=== PATIENT | female | born 1955 | race Caucasian/White ===

== ENCOUNTER 2018-01-08 20:57 | Emergency (ER) | payer MEDICAID ==
[2018-01-09 01:43] VITALS: BP 157/86
== END 2018-01-09 01:43 | disposition home or self-care (01) ==
LOC: ED 20:57
DX: S09.90XA Unspecified injury of head, initial encounter (principal); S16.1XXA Strain of muscle, fascia and tendon at neck level, initial encounter; I10 Essential (primary) hypertension; G40.909 Epilepsy, unspecified, not intractable, without status epilepticus; W22.8XXA Striking against or struck by other objects, initial encounter; Y93.89 Activity, other specified; Y92.89 Other specified places as the place of occurrence of the external cause; Y99.8 Other external cause status

== ENCOUNTER 2020-02-29 17:30 | Inpatient (IN) | payer SELFPAY ==
[~2020-02-29] VITALS: Ht 149.9 cm; Wt 61.7 kg
[2020-02-29 17:31] VITALS: Ht 149.9 cm; Wt 61.7 kg
[2020-02-29 18:15] LABS: microscopic required? NO
[2020-02-29 18:24] LABS: BASOPHIL % 1.1 % (0-2); PLATELET COUNT 378 x10^3mcL (130-400)
[2020-02-29 18:27] LABS: UA SPECIFIC GRAVITY 1.025 (1.005-1.035); urine erythrocyte NEGATIVE (NEGATIVE)
[2020-02-29 18:52] LABS: CALCIUM 9.4 mg/dL (8.5-10.1); CARBON DIOXIDE 21.3 mmol/L (21-32); CHLORIDE SERUM 98 mmol/L (98-107); CREATININE SERUM 1.4 mg/dL (0.6-1.0); GFR1 40 mL/min; GLUCOSE SERUM 125 mg/dL (74-106); POTASSIUM SERUM 3.7 mmol/L (3.5-5.1); SODIUM SERUM 136 mmol/L (136-145)
[2020-02-29 18:58] LABS: ALBUMIN 4.2 g/dL (3.4-5.0); ALKALINE PHOSPHATASE 157 U/L (46-116); ALT/SGPT 22 U/L (14-59); AST/SGOT 17 U/L (15-37); BILIRUBIN TOTAL 0.2 mg/dL (0.20-1.00); C REACTIVE PROTEIN 1.6 mg/dL (<=0.9)
[2020-02-29 19:01] LABS: TOTAL PROTEIN, SERUM 8.8 g/dL (6.4-8.2)
[2020-02-29 19:04] LABS: ERYTHROCYTE SED RATE 61 mm/hr (0-30)
[2020-02-29 19:20] LABS: FREE T4 1.07 ng/dL (0.76-1.46); FREE THYROXINE INDEX 2.5 ug/dL (1.4-4.5); T4(THYROXINE) 7.8 ug/dL (4.7-13.3)
[2020-02-29 19:26] LABS: CK-MB 0.6 ng/mL (0-3.6)
[2020-02-29 23:58] LABS: CHOLESTEROL/HDL RATIO 3.6
[2020-03-01 01:00] VITALS: BP 157/86
[2020-03-01] MEDS ORDERED: FORTAMET500 M1 PO (03:03)
[2020-03-01] MEDS ORDERED: LIPITOR20 MG PO (04:18)
[2020-03-01] MEDS ORDERED: ENALAPRIL20 M1 PO (04:18)
[2020-03-01] MEDS ORDERED: MICROZIDE12.5 MG PO (04:18)
[2020-03-01 05:09] VITALS: BP 147/66
[2020-03-01 07:31] LABS: BASOPHIL % 0.6 % (0-2); PLATELET COUNT 286 x10^3mcL (130-400); RED CELL DISTRIBUTION WIDTH 14.1 % (11.5-14.5)
[2020-03-01 07:46] LABS: CARBON DIOXIDE 23.1 mmol/L (21-32); CREATININE SERUM 1.2 mg/dL (0.6-1.0); POTASSIUM SERUM 3.9 mmol/L (3.5-5.1)
[2020-03-01 08:58] VITALS: BP 145/70
[2020-03-01 10:33] LABS: AMPHETAMINE QUAL UR NONE DETECTED (See below)
[2020-03-01 12:51] VITALS: BP 133/70
[2020-03-01 17:14] VITALS: BP 134/74
[2020-03-01 20:14] VITALS: BP 150/77
[2020-03-02 05:40] VITALS: BP 106/76
[2020-03-02 07:04] LABS: CALCIUM 8.3 mg/dL (8.5-10.1); CARBON DIOXIDE 25.4 mmol/L (21-32); CHLORIDE SERUM 106 mmol/L (98-107); CREATININE SERUM 0.8 mg/dL (0.6-1.0); GFR1 > 60 mL/min; GLUCOSE SERUM 113 mg/dL (74-106); MAGNESIUM 1.8 mg/dL (1.8-2.4); PHOSPHOROUS 3.5 mg/dL (2.5-4.9); POTASSIUM SERUM 3.7 mmol/L (3.5-5.1); SODIUM SERUM 139 mmol/L (136-145)
[2020-03-02 07:05] LABS: BASOPHIL % 0.6 % (0-2); PLATELET COUNT 247 x10^3mcL (130-400); RED CELL DISTRIBUTION WIDTH 14.3 % (11.5-14.5)
[2020-03-02 08:20] VITALS: BP 140/76
[2020-03-02 13:27] VITALS: BP 138/78
[2020-03-02 14:33] LABS: T3 TOTAL 0.63 ng/mL
[2020-03-02 17:36] VITALS: BP 123/61
[2020-03-02 20:45] VITALS: BP 150/80
[2020-03-03 05:29] VITALS: BP 149/74
[2020-03-03 06:36] LABS: PLATELET COUNT 328 x10^3mcL (130-400); RED CELL DISTRIBUTION WIDTH 14.5 % (11.5-14.5)
[2020-03-03 06:43] LABS: BASOPHIL % 2.4 % (0-2)
[2020-03-03 06:58] LABS: CALCIUM 9.5 mg/dL (8.5-10.1); CARBON DIOXIDE 23.8 mmol/L (21-32); CHLORIDE SERUM 107 mmol/L (98-107); CREATININE SERUM 0.9 mg/dL (0.6-1.0); GFR1 > 60 mL/min; GLUCOSE SERUM 147 mg/dL (74-106); MAGNESIUM 2.2 mg/dL (1.8-2.4); PHOSPHOROUS 3.5 mg/dL (2.5-4.9); POTASSIUM SERUM 3.7 mmol/L (3.5-5.1); SODIUM SERUM 143 mmol/L (136-145)
[2020-03-03 08:44] VITALS: BP 156/76
[2020-03-03 16:24] VITALS: BP 146/70
== END 2020-03-03 18:00 | disposition home or self-care (01) | DRG 871 ==
LOC: ED 17:30 → MU 22:03 → DU 22:03 → EDBEDREQ 22:07 → DU 03-01 00:45 → MU 03-03 12:16
PROVIDERS: Internal Medicine; Internal Medicine Gastroenterology; Specialist; ADMIT Internal Medicine; ATTEND Internal Medicine
PROC: 0DB68ZX Excision of Stomach, Via Natural or Artificial Opening Endoscopic, Diagnostic (ICD-10-PCS; principal; 2020-03-03 10:30)
PROC: 0DJD8ZZ Inspection of Lower Intestinal Tract, Via Natural or Artificial Opening Endoscopic (ICD-10-PCS; 2020-03-03 10:30)
DX: A41.9 Sepsis, unspecified organism (principal); N17.0 Acute kidney failure with tubular necrosis; G40.919 Epilepsy, unspecified, intractable, without status epilepticus; E11.9 Type 2 diabetes mellitus without complications; Z20.828 Contact with and (suspected) exposure to other viral communicable diseases; E78.5 Hyperlipidemia, unspecified; E86.0 Dehydration; Z90.49 Acquired absence of other specified parts of digestive tract; Z79.899 Other long term (current) drug therapy
CPT/HCPCS: 36600; 43235; 45378; 82962; 84439; C9113; G0378; J0696; J1200; J1610; J1885; J2250; J2310; J2405; J3010; J3490; J7030; J7060; J8597; Q0092